=== PATIENT | male | born 1985 | race Two or more races ===

== ENCOUNTER 2023-06-10 10:24 | Inpatient (IN) | payer MEDICAID ==
[~2023-06-10] VITALS: Ht 180.3 cm; Wt 86.8 kg
[2023-06-10] MEDS ORDERED: PROPOFOL 20 ML IV ONE (11:09)
[2023-06-10] MEDS: PROPOFOL 200 MG/20 ML VIAL IV ONE (11:32)
[2023-06-10 12:23] LABS: BASOPHILS # (AUTO) 0.1 K/uL (0.0-0.2); BASOPHILS % (AUTO) 0.6 % (0.0-2.0); EOSINOPHILS % (AUTO) 0.2 % (0.0-6.0); HEMATOCRIT 40 % (39-51); HEMOGLOBIN 13.4 g/dL (13.5-17.5); LYMPHOCYTES # (AUTO) 0.8 K/uL (0.8-4.8); LYMPHOCYTES % (AUTO) 6.5 % (20.0-44.0); MEAN CORPUSCULAR HEMOGLOBIN 29 PG (26.0-33.0); MEAN CORPUSCULAR HGB CONC 34 g/dl (31.0-36.0); MEAN CORPUSCULAR VOLUME 85 fL (80-96); MONOCYTES # (AUTO) 0.5 K/uL (0.1-1.30); MONOCYTES % (AUTO) 4.6 % (2.0-12.0); NEUTROPHILS # (AUTO) 10.5 K/uL (1.8-8.9); NEUTROPHILS % (AUTO) 88.1 % (43.0-81.0); PLATELET COUNT (AUTO) 365 K/uL (150-450); RED BLOOD CELL COUNT(AUTO) 4.71 MIL/uL (4.5-6.0); RED CELL DISTRIBUTION WIDTH 14.3 % (11.5-15.0); WHITE BLOOD COUNT (AUTO) 11.9 K/uL (4.3-11.0)
[2023-06-10 12:30] LABS: CALCIUM, SERUM 8.8 mg/dL (8.5-10.1); CREATININE 1.1 mg/dL (0.6-1.3); POTASSIUM 4.8 mmol/L (3.5-5.1)
[2023-06-10 16:00] VITALS: BP_SYST 129; BP_SYST 145; BP_DIAS 81; BP_DIAS 90; TEMP 98.1; TEMP 98.4; O2SAT 100; O2SAT 99
[2023-06-10] MEDS ORDERED: MAGNESIUM HYDROXIDE 30 ML UDC PO PRN (16:30)
[2023-06-10] MEDS ORDERED: Z GUARD REMEDY 4 OZ OINT TP PRN (16:30)
[2023-06-10] MEDS ORDERED: MORPHINE SULFATE INJ 2 MG/ML DISP.SYRIN IV PRN (16:30)
[2023-06-10] MEDS ORDERED: ONDANSETRON HCL/PF 4 MG/2 ML VIAL IVP PRN (16:30)
[2023-06-10] MEDS ORDERED: MAG HYDROX/AL HYDROX/SIMETH 30 ML UDC PO PRN (16:30)
[2023-06-10] MEDS ORDERED: ACETAMINOPHEN 325 MG TABLET PO PRN (16:30)
[2023-06-10 20:00] VITALS: BP 125/69; TEMP 98.4; O2SAT 97
[2023-06-11 07:07] LABS: BASOPHILS % (AUTO) 0.5 % (0.0-2.0); EOSINOPHILS # (AUTO) 0.1 K/uL (0.0-0.7); EOSINOPHILS % (AUTO) 1.3 % (0.0-6.0); HEMATOCRIT 40 % (39-51); HEMOGLOBIN 13.4 g/dL (13.5-17.5); LYMPHOCYTES # (AUTO) 1.9 K/uL (0.8-4.8); MEAN CORPUSCULAR HEMOGLOBIN 28 PG (26.0-33.0); MEAN CORPUSCULAR HGB CONC 34 g/dl (31.0-36.0); MEAN CORPUSCULAR VOLUME 83 fL (80-96); MONOCYTES # (AUTO) 0.6 K/uL (0.1-1.30); MONOCYTES % (AUTO) 7.8 % (2.0-12.0); NEUTROPHILS # (AUTO) 4.5 K/uL (1.8-8.9); NEUTROPHILS % (AUTO) 63.4 % (43.0-81.0); PLATELET COUNT (AUTO) 339 K/uL (150-450); RED BLOOD CELL COUNT(AUTO) 4.77 MIL/uL (4.5-6.0); WHITE BLOOD COUNT (AUTO) 7.1 K/uL (4.3-11.0)
[2023-06-11 07:31] LABS: CALCIUM, SERUM 9.4 mg/dL (8.5-10.1); CREATININE 1.3 mg/dL (0.6-1.3); MAGNESIUM 2.2 mg/dL (1.8-2.4); PHOSPHORUS 3.6 mg/dL (2.5-4.9)
[2023-06-11 09:18] VITALS: BP 132/76; TEMP 98.8; O2SAT 98
[2023-06-11 16:01] VITALS: BP 129/83; TEMP 98.4; O2SAT 99
[2023-06-11 20:00] VITALS: BP 130/76; TEMP 98.6; O2SAT 98
[2023-06-11 21:18] VITALS: BP 130/76; TEMP 98.6; O2SAT 98
[2023-06-12 07:30] VITALS: BP 156/75; TEMP 97.3; O2SAT 98
[2023-06-12] MEDS: IBUPROFEN 600 MG TABLET PO PRN (08:35)
[2023-06-12] MEDS ORDERED: PROPOFOL 20 ML IV ONE (15:56)
[2023-06-12 16:00] VITALS: BP 157/94; TEMP 98.1; O2SAT 98
[2023-06-12] MEDS ORDERED: ANESTHESIA TRAY IN PYXIS 1 EA TRAY MC ONE (16:22)
[2023-06-12] MEDS ORDERED: FENTANYL PF 100MCG/2ML AMPUL ONE (16:23)
[2023-06-12] MEDS ORDERED: MIDAZOLAM HCL 2 MG/2ML VIAL ONE (16:24)
[2023-06-12] MEDS ORDERED: FLUMAZENIL 0.5 MG VIAL ONE (16:46)
== END 2023-06-12 19:20 | disposition home or self-care (01) | DRG 342 ==
LOC: ER 10:35 → MED 12:24
PROVIDERS: ADMIT Internal Medicine; ATTEND Internal Medicine
PROC: 0RJ Upper Joints, Inspection (ICD-10-PCS; 2023-06-10)
PROC: 0RSLXZZ Reposition Right Elbow Joint, External Approach (ICD-10-PCS; principal; 2023-06-12)
DX: S42.491A Other displaced fracture of lower end of right humerus, initial encounter for closed fracture (principal); E87.20 Acidosis, unspecified; D72.829 Elevated white blood cell count, unspecified; E86.0 Dehydration; I10 Essential (primary) hypertension; W10.9XXA Fall (on) (from) unspecified stairs and steps, initial encounter; Y93.9 Activity, unspecified; Y92.89 Other specified places as the place of occurrence of the external cause; M24.421 Recurrent dislocation, right elbow
CPT/HCPCS: 36415; 71045-TC; 73030-TC; 73070-TC; 73080-TC; 73110; 73200-TC; 80048-TC; 83735-TC; 84100-TC; 85025-TC; 93307-TC; A6403; G0378; G0500; J2250; J2704; J3010; J3490; J7030